=== PATIENT | male | born 1990 | race Caucasian/White ===

== ENCOUNTER 2020-01-25 20:54 | Emergency (ER) | payer BC, SELFPAY ==
--- NOTE | ~2020-01-25 | XR_ITS ---
EXAMINATION: XR hand LT min 3V DATE: 01/25/2020 21:26 INDICATION: Dog bite TECHNIQUE: Posteroanterior, oblique and lateral views of the left hand were obtained. COMPARISON: None. FINDINGS: Alignment is normal. No fracture. Joint spaces are normal. Soft tissues are unremarkable. No evident soft tissue gas or radiopaque foreign bodies. IMPRESSION: 1. Negative left hand radiographs. Reviewed, dictated and finalized at location A. [employer] [employer] [facility]
[2020-01-25 20:59] VITALS: BP 151/97; PULSE 80; RESP 18; TEMP 36.1; O2SAT 100
--- NOTE | 2020-01-25 21:07 | ED.SKABFB ---
HPI - Skin/Abscess/Foreign Bdy General Chief complaint: Animal Bite Stated complaint: Dog Bite Time Seen by Provider: 01/25/20 21:04 Source: patient Mode of arrival: ambulatory Limitations: no limitations History of Present Illness HPI narrative: The pt is a 30 y/o male who presents to the ED with c/o a dog bite that occurred this evening. The pt states that the dog bit him in his lt hand and neck. He reports lacerations to his neck and lt hand. His last Tetanus shot was within the last 10 years. MD complaint: other (dog bite) Onset (ago): hour(s) (this evening) Tetanus up to date: yes Location: chest and L hand Associated symptoms: other (neck laceration, lt hand laceration) Related Data Allergies Allergy/AdvReac Type Severity Reaction Status Date / Time No Known Allergies Allergy Verified 01/25/20 21:19 Review of Systems Review of Systems: All systems reviewed & are unremarkable except as noted in HPI and below Integumentary/Breasts: Skin/Breast: Reports other (neck laceration, lt hand laceration) [facility] Past Medical History Medical History (Updated 01/25/20 @ 22:00 by Brenton Resendiz DO) Healthy adult Surgical History Surgical History (Updated 01/25/20 @ 21:13 by Deborah Patton) No pertinent past surgical history Social History Social History (Updated 01/25/20 @ 21:13 by Deborah Patton) Smoking status: Never smoker Gender identity (if verbalized by the patient): Male Exam Narrative: Exam Narrative: APPEARANCE: No acute distress, nontoxic, resting in bed EYES: PERRL HEENT: Normocephalic, atraumatic, nares patent, oral mucosa moist, no wound seen in her mouth, knee some in tubular region at the base of the chin there is a small 0.5 cm puncture wound with mild venous bleeding and no foreign bodies, the left cheek has a 1.5 cm laceration mild venous bleeding no foreign bodies that is gaping with fat exposure RESPIRATORY: No respiratory distress Clear to auscultation bilaterally with no rhonchi wheezing or rales. CARDIOVASCULAR: Regular rate and rhythm without murmurs rubs or gallops. ABDOMINAL: Soft, nontender, nondistended, MUSCULOSKELETAl: Moves all extremities. No clubbing, cyanosis or edema. Tender palpation over the left dorsal hand at the base of the first and second digit with swelling and several puncture wounds seen, puncture wounds are superficial with no foreign body seen and no active bleeding full flexion-extension of all 5 MCP and IP joints as well as wrist, radial pulse 2+, neurovascular intact NEURO: Awake and alert. Following commands, speech normal, no focal deficits SKIN:: Warm, dry. No rashes lesions or abrasions PSYCHIATRIC: Normal affect/mood, Course Course Emergency Course: Discussed with patient results of workup and diagnosis. Discussed need for follow-up with primary care, proper use of medication, and reasons to return to the emergency department. Patient understands and agrees to current treatment plan Vital Signs Vital signs: Vital Signs Temperature 96.9 F L 01/25/20 20:59 Pulse Rate 80 01/25/20 20:59 Respiratory Rate 18 01/25/20 20:59 Blood Pressure 151/97 H 01/25/20 20:59 Pulse Oximetry 100 01/25/20 20:59 Temperature 96.9 F L 01/25/20 20:59 Pulse Rate 80 01/25/20 20:59 Respiratory Rate 18 01/25/20 20:59 Blood Pressure 151/97 H 01/25/20 20:59 Pulse Oximetry 100 01/25/20 20:59 Procedures Laceration Laceration 1: Site: face Size (cm): 1.5 Description: linear and clean Depth: simple, single layer Local Anesthetic: lidocaine 1% and with epi Amount of anesthesia used (mL): 1 Pre-repair: wound explored and irrigated extensively ====== Skin Level ====== Skin layer closed with: nylon Size (cm): 6-0 Number of sutures: 2 Technique: simple, interrupted ====== Subcutaneous Layer ====== ====== Muscle Layer ====== ====== Tendon Layer =====
[2020-01-25] MEDS: AMOXICILLIN/CLAVULANATE K 875-125 MG TAB 1 TABLET PO (22:00)
== END 2020-01-25 22:10 | disposition home or self-care (01) ==
PROVIDERS: Emergency Provider Emergency Medicine; PCP Family Medicine
DX: S01.452A Open bite of left cheek and temporomandibular area, initial encounter (principal); S61.452A Open bite of left hand, initial encounter; W54.0XXA Bitten by dog, initial encounter
CPT/HCPCS: 12001; 73130; 99283; A9270